=== PATIENT | female | born 1945 | race Caucasian/White ===

== ENCOUNTER → 2018-11-15 | Outpatient (CLI) | payer MEDICARE, OTHER ==
[~2018-11-15] MED LIST: ACET325 PO; AMLO5; AMLO5 PO; BUPR150ER; BUPR150T2 PO; BUSP15 PO; CALGLU500; CIPR500 PO; CONEST.625 PO; CYCL10; CYCL10 PO; DIPATR PO; ESTR2; ESTR2 PO; ESTRTP VAG; FEXO180; FURO20; FURO20 PO; FURO40; FURO40 PO; HYDACE5325; HYDMOR2 PO; LASIX; LISI20 PO; LISI5; LORA.5 PO; LORA10ER; METR500 PO; MULVITMINF; NAPR550 PO; Norco 5-325 Ta1 EACH PO; OMEP20ER PO; ONDA4 PO; ONDA4ODT MM; Omeprazole20 M1 PO; PANT40; POTA8; POTCHL20ER PO; PROACE100 PO; PROM25 PO; PSEU120ER; Prilosec20 MG PO; Questran4 GM PO; RANI150 PO; SACC250C PO; SIMV10 PO; SIMV40; SIMV40 PO; SIMV5 PO; SUCR1 PO; SUCR1SU PO; SUDAFED; Simvastatin20 MG PO; TIZANIDINE HCL2 MG PO; TRAM50; TRAM50 PO; TRAZ100 PO; TRAZ50 PO; TROSPIUM CHLORI60 MG PO; VENL37.5ER PO; Vancocin HCL1000 M1 PO; Vancocin HCl250 MG PO; Zofran Odt4 MG SL; Zofran Odt8 MG SL; Zofran4 MG PO; Zofran8 MG PO; [UNRECOGNIZED DRUG - OTHER]
[2018-11-15 16:45] LABS: BASOPHILS ABSOLUTE AUTO 0.05 K/mm3 (0.00-0.23); BASOPHILS PERCENT AUTO 1 % (0-2); EOSINOPHILS ABSOLUTE AUTO 0.22 K/mm3 (0.00-0.68); EOSINOPHILS PERCENT AUTO 4 % (0-6); Hematocrit 45.3 % (33.0-51.0); Hemoglobin 14.9 g/dL (11.5-16.0); IMMATURE GRAN ABSOLUTE AUTO 0.01 K/mm3 (0.00-0.10); IMMATURE GRAN PERCENT AUTO 0 % (0-1); LYMPHOCYTES PERCENT AUTO 43 % (21-46); MONOCYTES ABSOLUTE AUTO 0.54 K/mm3 (0.16-1.47); MONOCYTES PERCENT AUTO 10 % (4-13); Mean Corpuscular HGB 32.6 pg (26.0-34.0); Mean Corpuscular HGB Conc 32.9 g/dL (31.5-36.5); Mean Corpuscular Volume 99 fL (80-100); Mean Platelet Volume 10.1 fL (9.1-12.4); NEUTROPHILS ABSOLUTE AUTO 2.43 K/mm3 (1.96-9.15); NEUTROPHILS PERCENT AUTO 43 % (41-73); Platelet Count 193 K/mm3 (150-400); RDW Coefficient Variation 12.6 % (11.7-14.2); RDW Standard Deviation 46.2 fL (35.1-46.3); Red Blood Cell Count 4.57 M/mm3 (3.80-5.20); White Blood Cell Count 5.65 K/mm3 (4.00-11.30)
[2018-11-15 17:07] LABS: Bilirubin, Total 0.6 mg/dL (0.1-1.0); Bun/Creatinine Ratio 15.6 (12.0-20.0); Calcium, Blood 9.4 mg/dL (8.5-10.1); Creatinine, Blood 1.28 mg/dL (0.40-1.00); Globulin, Blood 4.1 g/dL (2.2-4.0); Total Protein, Blood 8.1 g/dL (6.4-8.2)
== END | disposition home or self-care (01) ==
LOC: LAB SHORT 16:15 → LAB 16:15
PROVIDERS: Nurse Practitioner Family
DX: I10 Essential (primary) hypertension (principal); R53.83 Other fatigue
CPT/HCPCS: 80053; 83880; 85025

== ENCOUNTER → 2019-06-29 | Outpatient (CLI) | payer MEDICARE, OTHER ==
[2019-06-29 15:40] LABS: Microalbumin, Urine Quant. <5.000 mg/L (0.000-20.000); Protein, Urine Quantitative <5.0 mg/dL (0.0-11.9)
== END | disposition home or self-care (01) ==
LOC: OLS 06:00 → LAB SHORT 06:00 → LAB FUT 06-27 15:10
PROVIDERS: Internal Medicine Nephrology
DX: N18.2 Chronic kidney disease, stage 2 (mild) (principal); D63.1 Anemia in chronic kidney disease; N25.81 Secondary hyperparathyroidism of renal origin; E55.9 Vitamin D deficiency, unspecified; E78.00 Pure hypercholesterolemia, unspecified; R76.9 Abnormal immunological finding in serum, unspecified; R94.5 Abnormal results of liver function studies; R94.6 Abnormal results of thyroid function studies
CPT/HCPCS: 81050; 82043; 82570; 84156

== ENCOUNTER → 2020-01-12 | Outpatient (CLI) | payer MEDICARE, OTHER ==
[2020-01-16 08:10] LABS: METANEPHRINE, UR 133 ug/L (Undefined)
== END | disposition home or self-care (01) ==
LOC: LAB SHORT 12:56 → LAB 12:56 → LAB FUT 01-08 14:45
PROVIDERS: Internal Medicine Nephrology
DX: N18.2 Chronic kidney disease, stage 2 (mild) (principal); D63.1 Anemia in chronic kidney disease
CPT/HCPCS: 81050; 83835

== ENCOUNTER → 2020-10-22 | Outpatient (CLI) | payer MEDICARE, OTHER ==
[2020-10-22 16:41] LABS: Free Thyroxine 1.04 ng/dL (0.70-1.60); Thyroid Stimulating Hormone 2.94 uIU/mL (0.360-4.800)
== END | disposition home or self-care (01) ==
LOC: LAB 10:20 → LAB SHORT 10:20
PROVIDERS: Hospitalist
DX: E03.9 Hypothyroidism, unspecified (principal)
CPT/HCPCS: 84439; 84443

== ENCOUNTER → 2021-10-07 | Outpatient (CLI) | payer MEDICARE, OTHER | END | disposition home or self-care (01) | LOC: LAB SHORT 10:30 → LAB 10:30 | DX: N30.01 Acute cystitis with hematuria (principal) | CPT/HCPCS: 87077; 87086; 87186 ==

== ENCOUNTER → 2022-04-29 | Outpatient (CLI) | payer MEDICARE, OTHER ==
[2022-04-29 16:12] LABS: Magnesium, Blood 1.6 mg/dL (1.6-2.4)
[2022-04-29 16:17] LABS: Bun/Creatinine Ratio 15.6 (12.0-20.0); Calcium, Blood 9.2 mg/dL (8.5-10.1); Creatinine, Blood 0.83 mg/dL (0.40-1.00); Potassium, Blood 3.7 mmol/L (3.5-5.5)
== END | disposition home or self-care (01) ==
LOC: LAB SHORT 11:42 → LAB 11:42
PROVIDERS: Hospitalist
DX: M79.10 Myalgia, unspecified site (principal); E55.9 Vitamin D deficiency, unspecified
CPT/HCPCS: 80048; 82306; 83735

== ENCOUNTER → 2023-03-11 | Outpatient (CLI) | payer MEDICARE, OTHER ==
[2023-03-11 16:08] LABS: BASOPHILS ABSOLUTE AUTO 0.08 K/mm3 (0.00-0.23); BASOPHILS PERCENT AUTO 2 % (0-2); EOSINOPHILS ABSOLUTE AUTO 0.48 K/mm3 (0.00-0.68); EOSINOPHILS PERCENT AUTO 10 % (0-6); Hemoglobin 11.8 g/dL (11.5-16.0); IMMATURE GRAN ABSOLUTE AUTO 0.01 K/mm3 (0.00-0.10); IMMATURE GRAN PERCENT AUTO 0 % (0-1); LYMPHOCYTES ABSOLUTE AUTO 1.76 K/mm3 (0.84-5.20); LYMPHOCYTES PERCENT AUTO 37 % (21-46); MONOCYTES ABSOLUTE AUTO 0.35 K/mm3 (0.16-1.47); MONOCYTES PERCENT AUTO 7 % (4-13); Mean Corpuscular HGB 31.9 pg (26.0-34.0); Mean Corpuscular HGB Conc 32.8 g/dL (31.5-36.5); Mean Corpuscular Volume 97 fL (80-100); Mean Platelet Volume 11.9 fL (9.1-12.4); NEUTROPHILS ABSOLUTE AUTO 2.07 K/mm3 (1.96-9.15); NEUTROPHILS PERCENT AUTO 44 % (41-73); Platelet Count 88 K/mm3 (150-400); RDW Coefficient Variation 14.3 % (11.7-14.2); RDW Standard Deviation 50.9 fL (35.1-46.3); White Blood Cell Count 4.75 K/mm3 (4.00-11.30)
== END | disposition home or self-care (01) ==
LOC: LAB 12:10 → LAB SHORT 12:10
PROVIDERS: Hospitalist
DX: D69.6 Thrombocytopenia, unspecified (principal)
CPT/HCPCS: 85025

== ENCOUNTER → 2023-09-14 | Outpatient (CLI) | payer MEDICARE, OTHER ==
[2023-09-14 18:58] LABS: BASOPHILS ABSOLUTE AUTO 0.04 K/mm3 (0.00-0.23); BASOPHILS PERCENT AUTO 1 % (0-2); EOSINOPHILS ABSOLUTE AUTO 0.25 K/mm3 (0.00-0.68); EOSINOPHILS PERCENT AUTO 6 % (0-6); Hematocrit 33.5 % (33.0-51.0); IMMATURE GRAN PERCENT AUTO 0 % (0-1); LYMPHOCYTES ABSOLUTE AUTO 1.44 K/mm3 (0.84-5.20); LYMPHOCYTES PERCENT AUTO 37 % (21-46); MONOCYTES ABSOLUTE AUTO 0.41 K/mm3 (0.16-1.47); MONOCYTES PERCENT AUTO 11 % (4-13); Mean Corpuscular HGB 31.7 pg (26.0-34.0); Mean Corpuscular HGB Conc 32.8 g/dL (31.5-36.5); Mean Corpuscular Volume 97 fL (80-100); Mean Platelet Volume 11.6 fL (9.1-12.4); NEUTROPHILS ABSOLUTE AUTO 1.75 K/mm3 (1.96-9.15); NEUTROPHILS PERCENT AUTO 45 % (41-73); Platelet Count 96 K/mm3 (150-400); RDW Coefficient Variation 15.9 % (11.7-14.2); RDW Standard Deviation 56.6 fL (35.1-46.3); Red Blood Cell Count 3.47 M/mm3 (3.80-5.20); White Blood Cell Count 3.89 K/mm3 (4.00-11.30)
[2023-09-14 20:32] LABS: Albumin, Blood 2.8 g/dL (3.4-5.0); Albumin/Globulin Ratio 0.8 (0.8-1.8); Bilirubin, Total 0.7 mg/dL (0.1-1.0); Bun/Creatinine Ratio 22.2 (12.0-20.0); Calcium, Blood 9.7 mg/dL (8.5-10.1); Creatinine, Blood 1.08 mg/dL (0.40-1.00); Free Thyroxine 1.1 ng/dL (0.70-1.60); Globulin, Blood 3.5 g/dL (2.2-4.0); Potassium, Blood 4.9 mmol/L (3.5-5.5); Thyroid Stimulating Hormone 3.52 uIU/mL (0.360-4.800); Total Protein, Blood 6.3 g/dL (6.4-8.2)
== END | disposition home or self-care (01) ==
LOC: LAB SHORT 17:56 → LAB 17:56
PROVIDERS: Hospitalist
DX: I10 Essential (primary) hypertension (principal); E03.9 Hypothyroidism, unspecified; D69.6 Thrombocytopenia, unspecified
CPT/HCPCS: 80053; 84439; 84443; 85025

== ENCOUNTER → 2023-11-16 | Outpatient (CLI) | payer MEDICARE, OTHER ==
[~2023-11-16] MED LIST changes: +ALBU90OI; +ALEN70 PO; +BENZ100A; +CATAPRES0.1 MG PO; +GABA300; +HYDR10; +HYDR10 PO; +K-Dur10 MEQ; +LEVSOD25 PO; +LOSA50; +SERT50 PO; +SPIR25 PO; +TIZA4 PO; +WIXELA 250-501 EAC1 INH
[2023-11-16 15:00] LABS: BASOPHILS ABSOLUTE AUTO 0.03 K/mm3 (0.00-0.23); BASOPHILS PERCENT AUTO 1 % (0-2); EOSINOPHILS ABSOLUTE AUTO 0.04 K/mm3 (0.00-0.68); EOSINOPHILS PERCENT AUTO 1 % (0-6); Hematocrit 37.8 % (33.0-51.0); Hemoglobin 12.4 g/dL (11.5-16.0); IMMATURE GRAN ABSOLUTE AUTO 0.02 K/mm3 (0.00-0.10); IMMATURE GRAN PERCENT AUTO 0 % (0-1); LYMPHOCYTES ABSOLUTE AUTO 1.41 K/mm3 (0.84-5.20); LYMPHOCYTES PERCENT AUTO 31 % (21-46); MONOCYTES ABSOLUTE AUTO 0.43 K/mm3 (0.16-1.47); MONOCYTES PERCENT AUTO 10 % (4-13); Mean Corpuscular HGB 31.7 pg (26.0-34.0); Mean Corpuscular HGB Conc 32.8 g/dL (31.5-36.5); Mean Corpuscular Volume 97 fL (80-100); Mean Platelet Volume 10.5 fL (9.1-12.4); NEUTROPHILS PERCENT AUTO 57 % (41-73); Platelet Count 95 K/mm3 (150-400); RDW Standard Deviation 56.6 fL (35.1-46.3); Red Blood Cell Count 3.91 M/mm3 (3.80-5.20); White Blood Cell Count 4.53 K/mm3 (4.00-11.30)
[2023-11-16 15:27] LABS: Albumin, Blood 3.2 g/dL (3.4-5.0); Albumin/Globulin Ratio 0.8 (0.8-1.8); Bilirubin, Total 1.3 mg/dL (0.1-1.0); Bun/Creatinine Ratio 14.1 (12.0-20.0); Calcium, Blood 9.4 mg/dL (8.5-10.1); Potassium, Blood 3.8 mmol/L (3.5-5.5); Total Protein, Blood 7.2 g/dL (6.4-8.2)
== END | disposition home or self-care (01) ==
LOC: LAB SHORT 14:48 → LAB 14:48
PROVIDERS: Nurse Practitioner Family
DX: R19.7 Diarrhea, unspecified (principal)
CPT/HCPCS: 80053; 83880; 85025

== ENCOUNTER 2023-11-27 16:19 | Inpatient (IN) | payer MEDICARE, OTHER ==
[~2023-11-27] VITALS: Ht 170.2 cm; Wt 90.7 kg
[~2023-11-27 16:19] MED LIST changes: -ALBU90OI; -ALEN70 PO; -BENZ100A; -CATAPRES0.1 MG PO; -GABA300; -HYDR10; -HYDR10 PO; -K-Dur10 MEQ; -LEVSOD25 PO; -LOSA50; -SERT50 PO; -SPIR25 PO; -TIZA4 PO; -WIXELA 250-501 EAC1 INH
[2023-11-27 18:02] LABS: Albumin, Blood 2.6 g/dL (3.4-5.0); Albumin/Globulin Ratio 0.7 (0.8-1.8); Bilirubin, Total 2.1 mg/dL (0.1-1.0); Bun/Creatinine Ratio 26.9 (12.0-20.0); Calcium, Blood 9.5 mg/dL (8.5-10.1); Creatinine, Blood 0.93 mg/dL (0.40-1.00); Globulin, Blood 3.6 g/dL (2.2-4.0); Hematocrit 36.8 % (33.0-51.0); Hemoglobin 12.1 g/dL (11.5-16.0); Mean Corpuscular HGB 31.4 pg (26.0-34.0); Mean Corpuscular HGB Conc 32.9 g/dL (31.5-36.5); Mean Corpuscular Volume 96 fL (80-100); Mean Platelet Volume 11.6 fL (9.1-12.4); Platelet Count 82 K/mm3 (150-400); Potassium, Blood 4.2 mmol/L (3.5-5.5); RDW Coefficient Variation 15.2 % (11.7-14.2); RDW Standard Deviation 53.5 fL (35.1-46.3); Red Blood Cell Count 3.85 M/mm3 (3.80-5.20); Total Protein, Blood 6.2 g/dL (6.4-8.2); White Blood Cell Count 17.62 K/mm3 (4.00-11.30)
[2023-11-27] MEDS ORDERED: Droperidol 5 mg/2 ml Vial IV ONE (18:30)
[2023-11-27] MEDS ORDERED: Ampicillin Sod/Sulbactam Sod 3 GM in NS 100 ML IV ONE (18:30)
[2023-11-27] MEDS ORDERED: NS 1,000 ML IV SCH ×2 (18:30→21:35)
[2023-11-27 18:39] LABS: BAND PERCENT MAN 2 % (0-8); BASOPHILS PERCENT MAN 0 % (0-2); EOSINOPHILS PERCENT MAN 0 % (0-6); LYMPHOCYTES ABSOLUTE MAN 0.88 K/mm3 (0.84-5.20); LYMPHOCYTES PERCENT MAN 5 % (21-46); MONOCYTES ABSOLUTE MAN 1.05 K/mm3 (0.16-1.47); MONOCYTES PERCENT MAN 6 % (4-13); NEUTROPHILS ABSOLUTE MAN 15.68 K/mm3 (1.96-9.15); SEG NEUTROPHILS PERCENT MAN 87 % (41-73); TOTAL CELLS COUNTED 100
[2023-11-27 20:43] LABS: Source, Urine Clean Catch
[2023-11-27 20:47] LABS: Bilirubin, Urine Neg (Neg); Blood, Urine 5+ (Neg); Glucose Qualitative, Urine Neg (Neg); Ketones, Urine Neg (Neg); Leukocyte Esterase, Urine 1+ (Neg); Nitrite, Urine Neg (Neg); Protein, Urine 2+ (Neg); Specific Gravity, Urine 1.015 (1.003-1.022); Urobilinogen, Urine NORM (Normal)
[2023-11-27 21:04] LABS: Appearance, Urine Hazy (Clear); Color, Urine Yellow (P-Yellow)
[2023-11-27 21:05] LABS: Amorphous Mod (0-Heavy); Bacteria Many /hpf; Red Blood Cells, Urine 0-2 /hpf (0-2); Squamous Epithelial Cells Not Seen /hpf (Few)
[2023-11-27] MEDS ORDERED: Acetaminophen 325 MG TABLET PO PRN (21:30)
[2023-11-27] MEDS ORDERED: Ondansetron HCl 2 MG / ML 2ML Vial IV PRN (21:35)
[2023-11-28] MEDS ORDERED: CeFAZolin Sodium 2,000 MG in NS 100 ML IV SCH
[2023-11-28] MEDS ORDERED: TraMADol HCl 50 MG Tab PO ONE (03:10)
[2023-11-28 05:49] LABS: BASOPHILS ABSOLUTE AUTO 0.02 K/mm3 (0.00-0.23); BASOPHILS PERCENT AUTO 0 % (0-2); EOSINOPHILS PERCENT AUTO 0 % (0-6); Hematocrit 36.6 % (33.0-51.0); IMMATURE GRAN ABSOLUTE AUTO 0.14 K/mm3 (0.00-0.10); IMMATURE GRAN PERCENT AUTO 1 % (0-1); LYMPHOCYTES ABSOLUTE AUTO 1.24 K/mm3 (0.84-5.20); LYMPHOCYTES PERCENT AUTO 8 % (21-46); MONOCYTES ABSOLUTE AUTO 1.06 K/mm3 (0.16-1.47); MONOCYTES PERCENT AUTO 7 % (4-13); Mean Corpuscular HGB 31.9 pg (26.0-34.0); Mean Corpuscular HGB Conc 32.8 g/dL (31.5-36.5); Mean Corpuscular Volume 97 fL (80-100); Mean Platelet Volume 11.8 fL (9.1-12.4); NEUTROPHILS ABSOLUTE AUTO 13.24 K/mm3 (1.96-9.15); NEUTROPHILS PERCENT AUTO 84 % (41-73); Platelet Count 74 K/mm3 (150-400); RDW Coefficient Variation 15.3 % (11.7-14.2); Red Blood Cell Count 3.76 M/mm3 (3.80-5.20)
[2023-11-28] MEDS ORDERED: Pantoprazole Sodium 40 MG Injection IV SCH (06:00)
[2023-11-28 06:21] LABS: Bun/Creatinine Ratio 26.8 (12.0-20.0); Calcium, Blood 8.7 mg/dL (8.5-10.1); Creatinine, Blood 0.82 mg/dL (0.40-1.00); Potassium, Blood 4.3 mmol/L (3.5-5.5)
[2023-11-28] MEDS ORDERED: Enoxaparin 40 MG/0.4 ML SYR SC SCH (09:00)
[2023-11-28] MEDS ORDERED: Lactobacil 2-S.Thermo-Bifido 1 1 Cap PO SCH (09:00)
[2023-11-28] MEDS ORDERED: HydrALAZINE HCl 20 MG / ML 1ML Vial IV PRN (12:55)
[2023-11-28] MEDS ORDERED: TRAM50 PO (12:57)
[2023-11-28] MEDS ORDERED: LOSA50 PO (12:59)
[2023-11-28] MEDS ORDERED: HYDR10 (12:59)
[2023-11-28] MEDS ORDERED: CATAPRES0.1 MG PO (12:59)
[2023-11-28] MEDS ORDERED: GABA300 (12:59)
[2023-11-28] MEDS ORDERED: SPIR25 PO (12:59)
[2023-11-28] MEDS ORDERED: LEVSOD25 PO (13:00)
[2023-11-28] MEDS ORDERED: ALEN70 PO (13:00)
[2023-11-28] MEDS ORDERED: ALBU90OI (13:00)
[2023-11-28] MEDS ORDERED: BENZ100A (13:00)
[2023-11-28] MEDS ORDERED: TIZA4 PO (13:00)
[2023-11-28] MEDS ORDERED: K-Dur10 MEQ (13:01)
[2023-11-28] MEDS ORDERED: Metoclopramide HCl 5MG / ML 2ML Vial IV PRN (13:20)
[2023-11-28 14:38] VITALS: BP 175/67
[2023-11-28] MEDS ORDERED: SERT50 PO (16:06)
[2023-11-28] MEDS ORDERED: WIXELA 250-501 EAC1 INH (16:07)
[2023-11-28] MEDS ORDERED: HYDR10 PO (16:08)
[2023-11-28] MEDS ORDERED: Mometasone/Formoterol MDI 200/5 mcg 13 GM INH SCH (17:00)
[2023-11-28] MEDS ORDERED: Metoclopramide HCl 5MG / ML 2ML Vial IV ONE (20:15)
[2023-11-28] MEDS ORDERED: TraMADol HCl 50 MG Tab PO PRN (20:15)
[2023-11-28] MEDS ORDERED: Lisinopril 20 MG Tab PO SCH (21:00)
[2023-11-28] MEDS ORDERED: CloNIDine 0.1 MG Tab PO SCH (21:00)
[2023-11-28] MEDS ORDERED: Losartan Potassium 25 MG Tab PO SCH (21:00)
[2023-11-29] MEDS ORDERED: Prochlorperazine Edisylate 10 mg Vial IV PRN (03:30)
[2023-11-29 04:54] LABS: BASOPHILS ABSOLUTE AUTO 0.02 K/mm3 (0.00-0.23); BASOPHILS PERCENT AUTO 0 % (0-2); EOSINOPHILS ABSOLUTE AUTO 0.01 K/mm3 (0.00-0.68); EOSINOPHILS PERCENT AUTO 0 % (0-6); Hematocrit 38.6 % (33.0-51.0); Hemoglobin 11.8 g/dL (11.5-16.0); IMMATURE GRAN ABSOLUTE AUTO 0.08 K/mm3 (0.00-0.10); IMMATURE GRAN PERCENT AUTO 1 % (0-1); LYMPHOCYTES ABSOLUTE AUTO 1.71 K/mm3 (0.84-5.20); LYMPHOCYTES PERCENT AUTO 13 % (21-46); MONOCYTES ABSOLUTE AUTO 0.87 K/mm3 (0.16-1.47); MONOCYTES PERCENT AUTO 7 % (4-13); Mean Corpuscular HGB 31.1 pg (26.0-34.0); Mean Corpuscular HGB Conc 30.6 g/dL (31.5-36.5); Mean Platelet Volume 11.8 fL (9.1-12.4); NEUTROPHILS ABSOLUTE AUTO 10.48 K/mm3 (1.96-9.15); NEUTROPHILS PERCENT AUTO 80 % (41-73); Platelet Count 77 K/mm3 (150-400); RDW Coefficient Variation 15.7 % (11.7-14.2); RDW Standard Deviation 58.5 fL (35.1-46.3); White Blood Cell Count 13.17 K/mm3 (4.00-11.30)
[2023-11-29 05:08] LABS: Mean Corpuscular Volume 102 fL (80-100)
[2023-11-29 05:14] LABS: Albumin, Blood 2.2 g/dL (3.4-5.0); Albumin/Globulin Ratio 0.6 (0.8-1.8); Bilirubin, Total 0.9 mg/dL (0.1-1.0); Bun/Creatinine Ratio 27.5 (12.0-20.0); Calcium, Blood 8.3 mg/dL (8.5-10.1); Creatinine, Blood 0.8 mg/dL (0.40-1.00); Globulin, Blood 3.5 g/dL (2.2-4.0); Potassium, Blood 4.1 mmol/L (3.5-5.5); Total Protein, Blood 5.7 g/dL (6.4-8.2)
[2023-11-29 05:32] VITALS: BP 134/68
--- NOTE | 2023-11-29 05:53 | NUR ---
SHIFT SUMMARY: PATIENT HAS PERSISTANT NAUSEA. TROUSSEAU CONSULTANT MD WAS NOTIFIED AT START OF SHIFT AND ORDER FOR A NOW DOSE OF REGLAN WAS OBTAINED AND MED WAS GIVEN. THEN DR HOUGH WAS NOTIFIED NAUSEA PERSISTS AND COMPAZINE WAS ORDERED AND GIVEN. PATIENT ALSO REPORTED CHRONIC BACK PAIN AND REQUESTED HER HOME MED OF TRAMADOL FOR PAIN, ORDER WAS OBTAINE AND MED WAS GIVEN. NO STOOLS THIS SHIFT PERWICK IS IN PLACE AND WAS CHANGED THIS AM.
[2023-11-29] MEDS ORDERED: Levothyroxine Sodium 0.025 MG Tab PO SCH (06:00)
[2023-11-29 07:41] VITALS: BP 162/66
[2023-11-29] MEDS ORDERED: NS 250 ML IV PRN (09:25)
[2023-11-29 14:18] VITALS: BP 159/66
--- NOTE | 2023-11-29 17:54 | NUR ---
SUMMARY- PT LETHARGIC AND TIRED THIS SHIFT. SLEPT MOST OF THE SHIFT AND HAD FREQUENT COMPLAINTS OF NAUSEA AND BACK PAIN. PT MEDICATED WITH TRAMADOL FOR PAIN AND COMPAZINE AND ZOFRAN FOR NAUSEA, WHICH PT SLEPT WELL AFTER ALL MED ADMINISTRATIONS. AAOX3. PT DISORIENTED TO SITUATION. X1 ASSIST TO BSC/BATHROOM. PT REFUSED TO GET OOB FOR DINNER.
[2023-11-29 19:40] VITALS: BP 150/63
[2023-11-30 02:47] VITALS: BP 163/62
[2023-11-30 04:42] LABS: BASOPHILS ABSOLUTE AUTO 0.03 K/mm3 (0.00-0.23); BASOPHILS PERCENT AUTO 0 % (0-2); EOSINOPHILS ABSOLUTE AUTO 0.15 K/mm3 (0.00-0.68); EOSINOPHILS PERCENT AUTO 2 % (0-6); Hematocrit 35.6 % (33.0-51.0); Hemoglobin 11.2 g/dL (11.5-16.0); IMMATURE GRAN ABSOLUTE AUTO 0.03 K/mm3 (0.00-0.10); IMMATURE GRAN PERCENT AUTO 0 % (0-1); LYMPHOCYTES ABSOLUTE AUTO 1.66 K/mm3 (0.84-5.20); LYMPHOCYTES PERCENT AUTO 23 % (21-46); MONOCYTES ABSOLUTE AUTO 0.49 K/mm3 (0.16-1.47); MONOCYTES PERCENT AUTO 7 % (4-13); Mean Corpuscular HGB 31.5 pg (26.0-34.0); Mean Corpuscular HGB Conc 31.5 g/dL (31.5-36.5); Mean Corpuscular Volume 100 fL (80-100); Mean Platelet Volume 11.8 fL (9.1-12.4); NEUTROPHILS ABSOLUTE AUTO 4.97 K/mm3 (1.96-9.15); NEUTROPHILS PERCENT AUTO 68 % (41-73); Platelet Count 82 K/mm3 (150-400); RDW Coefficient Variation 15.7 % (11.7-14.2); Red Blood Cell Count 3.56 M/mm3 (3.80-5.20); White Blood Cell Count 7.33 K/mm3 (4.00-11.30)
[2023-11-30 06:10] LABS: Albumin, Blood 2.1 g/dL (3.4-5.0); Albumin/Globulin Ratio 0.6 (0.8-1.8); Bilirubin, Direct 0.2 mg/dL (0.0-0.3); Bilirubin, Indirect 0.3 mg/dL (0.1-0.7); Bilirubin, Total 0.5 mg/dL (0.1-1.0); Calcium, Blood 8.4 mg/dL (8.5-10.1); Creatinine, Blood 0.87 mg/dL (0.40-1.00); Globulin, Blood 3.6 g/dL (2.2-4.0); Potassium, Blood 3.6 mmol/L (3.5-5.5); Total Protein, Blood 5.7 g/dL (6.4-8.2)
[2023-11-30 07:07] VITALS: BP 168/69
--- NOTE | 2023-11-30 07:42 | NUR ---
SHIFT SUMMARY: PATIENT IS A&O TO SELF AND PLACE. NAUSEA IS PERSISTANT, COMPAZINE AND ZOFRAN WERE GIVEN WITH FAIR EFFECT. CHRONIC BACK PAIN WAS MEDICATED WITH GOOD EFFECT WITH TRAMADOL X2. PO INTAKE HAS IMPROVED THIS SHIFT.
[2023-11-30] MEDS ORDERED: Losartan Potassium 50 MG Tab PO SCH (09:00)
[2023-11-30] MEDS ORDERED: TraMADol HCl 50 MG Tab PO PRN (11:45)
[2023-11-30 15:44] VITALS: BP 159/70
[2023-11-30] MEDS ORDERED: Acetaminophen 325 MG TABLET PO SCH (16:00)
[2023-11-30 17:45] LABS: HEPATITIS A ANTIBODY, IGM Negative (Negative); HEPATITIS B CORE ANTIBODY, IGM Negative (Negative); HEPATITIS B SURFACE ANTIGEN Negative (Negative); HEPATITIS C AB CIA INTERP Negative (Negative); HEPATITIS C ANTIBODY CIA INDEX 0.07 IV
[2023-11-30] MEDS ORDERED: Prochlorperazine Maleate 5 MG Tab PO PRN (17:50)
[2023-11-30] MEDS ORDERED: Cephalexin Monohydrate 500 MG Cap PO SCH (18:00)
--- NOTE | 2023-11-30 18:25 | NUR ---
1613- PHONE VERBAL FROM DR. SILVA FOR NO IV. IS CHANGING PT'S IV MEDS TO PO.
--- NOTE | 2023-11-30 18:26 | NUR ---
SUMMARY- AAOX3. LETHARGIC AND SLEEPING MOST OF THE SHIFT. BACK PAIN WELL CONTROLLED WITH TRAMADOL. NAUSEA WELL CONTROLLED WITH COMPAZINE. PT TO CHAIR FOR ALL MEALS EXCEPT BREAKFAST. X1 ASSIST W/WALKER AND GAIT BELT TO BSC.
[2023-11-30 19:58] VITALS: BP 168/67
[2023-12-01 02:42] VITALS: BP 167/58
[2023-12-01] MEDS ORDERED: Pantoprazole Sodium 40 MG Tab PO SCH (06:00)
--- NOTE | 2023-12-01 06:27 | NUR ---
SHIFT SUMMARY: PATIENT ORIENTED, COOPERATIVE. SLEPT WELL THROUGH NIGHT. COMPLAINTS OF PAIN RESOLVED BY PAIN MEDICATION. EDEMA IN LEFT ARM AND BILATERAL LOWER EXTREMITIES.
[2023-12-01 07:04] VITALS: BP 158/59
[2023-12-01 07:06] LABS: Hematocrit 35.8 % (33.0-51.0); Hemoglobin 11.4 g/dL (11.5-16.0); Mean Corpuscular HGB 31.4 pg (26.0-34.0); Mean Corpuscular HGB Conc 31.8 g/dL (31.5-36.5); Mean Corpuscular Volume 99 fL (80-100); Mean Platelet Volume 11.2 fL (9.1-12.4); Platelet Count 74 K/mm3 (150-400); RDW Coefficient Variation 15.2 % (11.7-14.2); RDW Standard Deviation 55.3 fL (35.1-46.3); Red Blood Cell Count 3.63 M/mm3 (3.80-5.20); White Blood Cell Count 6.34 K/mm3 (4.00-11.30)
[2023-12-01 07:39] LABS: Albumin/Globulin Ratio 0.6 (0.8-1.8); Bilirubin, Total 0.7 mg/dL (0.1-1.0); Creatinine, Blood 0.73 mg/dL (0.40-1.00); Globulin, Blood 3.5 g/dL (2.2-4.0); Potassium, Blood 3.8 mmol/L (3.5-5.5); Total Protein, Blood 5.5 g/dL (6.4-8.2)
[2023-12-01] MEDS ORDERED: Losartan Potassium 50 MG Tab PO SCH ×2 (09:00)
[2023-12-01] MEDS ORDERED: NIFEdipine 60 MG TabCR PO SCH (09:00)
[2023-12-01 15:33] VITALS: BP 149/60
[2023-12-01] MEDS ORDERED: Sertraline HCl 50 MG Tab PO SCH (16:00)
--- NOTE | 2023-12-01 18:38 | NUR ---
SUMMARY- AAOX3. X1 ASSIST TO THE BSC. NO ACUTE EVENTS THIS SHIFT. NO CHANGES W/PT THIS SHIFT. PAIN AND NAUSEA IMPROVED COMPARED TO YESTERDAY.
[2023-12-01 19:31] VITALS: BP 164/56
[2023-12-02 02:56] VITALS: BP 150/55
[2023-12-02 05:17] LABS: Hematocrit 39.3 % (33.0-51.0); Hemoglobin 12.6 g/dL (11.5-16.0); Mean Corpuscular HGB 31.4 pg (26.0-34.0); Mean Corpuscular HGB Conc 32.1 g/dL (31.5-36.5); Mean Corpuscular Volume 98 fL (80-100); Mean Platelet Volume 11.2 fL (9.1-12.4); Platelet Count 108 K/mm3 (150-400); RDW Coefficient Variation 15.4 % (11.7-14.2); RDW Standard Deviation 55.6 fL (35.1-46.3); Red Blood Cell Count 4.01 M/mm3 (3.80-5.20); White Blood Cell Count 9.18 K/mm3 (4.00-11.30)
--- NOTE | 2023-12-02 06:03 | NUR ---
SHIFT SUMMARY: PATIENT FULLY ORIENTED, COOPERATIVE. PREFERRED MEDS WHOLE IN APPLESAUCE. ON PUREWICK DURING THE NIGHT. SLEPT WELL THROUGH NIGHT.
[2023-12-02 06:05] LABS: Alanine Aminotransfer (ALT/SGP 26 U/L (12-78); Albumin, Blood 2.2 g/dL (3.4-5.0); Albumin/Globulin Ratio 0.6 (0.8-1.8); Alk Phos 127 U/L (50-136); Anion Gap 8 mmol/L (3-11); Aspartate Aminotrans (AST/SGOT 98 U/L (12-37); Bilirubin, Direct 0.3 mg/dL (0.0-0.3); Bilirubin, Indirect 0.6 mg/dL (0.1-0.7); Bilirubin, Total 0.9 mg/dL (0.1-1.0); Blood Urea Nitrogen 12 mg/dL (8-24); Bun/Creatinine Ratio 15.2 (12.0-20.0); CO2, Blood 28 mmol/L (21-32); Calcium, Blood 8.5 mg/dL (8.5-10.1); Chloride, Blood 110 mmol/L (98-108); Creatinine, Blood 0.79 mg/dL (0.40-1.00); Globulin, Blood 3.9 g/dL (2.2-4.0); Glomerular Filtration Rate 77 (60-); Glucose, Blood 98 mg/dL (70-99); Phosphorus, Blood 2.1 mg/dL (2.5-4.9); Potassium, Blood 3.8 mmol/L (3.5-5.5); Sodium, Blood 142 mmol/L (136-145); Total Protein, Blood 6.1 g/dL (6.4-8.2)
[2023-12-02 06:56] VITALS: BP 168/63
[2023-12-02] MEDS ORDERED: Docusate Sodium/Senna 1 Tab PO PRN (15:00)
[2023-12-02] MEDS ORDERED: Docusate Sodium/Senna 1 Tab PO ONE (15:00)
[2023-12-02 15:18] VITALS: BP 147/52
[2023-12-02] MEDS ORDERED: ALBU90OI INH (15:29)
[2023-12-02] MEDS ORDERED: NIFE90ER PO (15:30)
[2023-12-02] MEDS ORDERED: CEPH500 PO (15:30)
[2023-12-02] MEDS ORDERED: LACT PO (15:31)
[2023-12-02] MEDS ORDERED: PROC5 PO (15:31)
--- NOTE | 2023-12-02 16:29 | NUR ---
SHIFT SUMMARY NO ACUTE CHANGES TODAY. PT REPORTS CONSTANT NAUSEA, BUT NO EMESIS. COMPAZINE PRN. TRAMADOL FOR PAIN. RLL CELLULITIS IMPROVING + RECEDING FROM OUTLINE. ORAL ABX PER ORDERS. PT REPORTS FEELING BETTER. 1 ASSIST TO BSC. PLAN FOR PT TO DC TO SNF, BUT NEEDS TO HAVE A BM FIRST. BOWEL CARE MEDS STARTED. PT USES CALL LIGHT APPROPRIATELY.
[2023-12-02 16:37] LABS: SARS-Cov-2 (COVID-19) PCR, MMC NEGATIVE (NEGATIVE)
[2023-12-02 19:47] VITALS: BP 151/54
[2023-12-03] MEDS ORDERED: Docusate Sodium 100 MG Cap PO SCH (04:45)
[2023-12-03] MEDS ORDERED: Magnesium Hydroxide Conc 10 ML UDC PO PRN (04:45)
[2023-12-03] MEDS ORDERED: Bisacodyl 10 MG Supp PR PRN (04:45)
[2023-12-03] MEDS ORDERED: Sennosides 8.6 MG Tab PO SCH (04:45)
[2023-12-03 06:38] VITALS: BP 165/58
[2023-12-03 07:04] VITALS: BP 171/62
--- NOTE | 2023-12-03 07:31 | NUR ---
SHIFT SUMMARY: PATIENT FULLY ORIENTED, COOPERATIVE. PREFERS PILLS IN SAUCE. WAITING FOR BOWEL MOVEMENT IN ORDER TO MOVE TO SNF.
[2023-12-03] MEDS ORDERED: Polyethylene Glycol 3350 17 gm PO PRN (08:00)
[2023-12-03] MEDS ORDERED: Polyethylene Glycol 3350 17 gm PO ONE (08:00)
[2023-12-03] MEDS ORDERED: NIFEdipine 90 MG TabCR PO SCH (09:00)
[2023-12-03] MEDS ORDERED: Metoclopramide HCl 5MG / ML 2ML Vial IV PRN (09:25)
[2023-12-03] MEDS ORDERED: Promethazine HCl 25 MG Tab PO PRN (10:35)
--- NOTE | 2023-12-03 14:09 | NUR ---
DISCHARGE SUMMARY PT LEFT FACILITY VIA WHEELCHAIR BY TRANSPORTATION VAN TO RETURN TO [facility]. THIS NURSE WENT OVER DC INSTRUCTION AND NEW MEDICATION WITH PT. WHOM STATED UNDERSTANDING DC PACKET SENT PT. THIS NURSE ATTEMPTED TO CALL AND GIVE REPORT TO NURSE AT [facility] X2 ATTEMPTS. RESEARCH PROGRAM INTER[employer] STATED SHE WHOULD HAVE THE NURSE CALL BACK WHEN AVAILABLE.
[2023-12-04] MEDS ORDERED: Sertraline HCl 50 MG Tab PO SCH (09:00)
== END 2023-12-03 11:56 | DRG 871 ==
LOC: ER 16:19 → ERHOLD 21:29 → MEDS 21:29
PROVIDERS: Emergency Medicine; Family Medicine; Nurse Practitioner Acute Care; ADMIT Internal Medicine
DX: A41.9 Sepsis, unspecified organism (principal); G92.8 Other toxic encephalopathy; N39.0 Urinary tract infection, site not specified; L03.115 Cellulitis of right lower limb; K52.9 Noninfective gastroenteritis and colitis, unspecified; E78.5 Hyperlipidemia, unspecified; M51.36 Other intervertebral disc degeneration, lumbar region; K74.60 Unspecified cirrhosis of liver; I10 Essential (primary) hypertension; F32.A Depression, unspecified; B96.20 Unspecified Escherichia coli [E. coli] as the cause of diseases classified elsewhere; I86.8 Varicose veins of other specified sites; Z88.5 Allergy status to narcotic agent; Z88.8 Allergy status to other drugs, medicaments and biological substances; Z87.11 Personal history of peptic ulcer disease; Z98.890 Other specified postprocedural states; Z86.19 Personal history of other infectious and parasitic diseases; Z91.018 Allergy to other foods; R29.6 Repeated falls; N21.0 Calculus in bladder
CPT/HCPCS: 36415; 51701; 70450; 72070; 74177; 80048; 80053; 80074; 80076; 81001; 82140; 83605; 83690; 84100; 84443; 85025; 85027; 87040; 87077; 87086; 87186; 93005; 93010; 93971; 94640; 94664; 94760; 96361; 96365-59; 96375-59; 97110; 97116; 97162; 97530; 99285-25; A9270; C9113; J0295; J0360; J0690; J0780; J1650; J1790; J2405; J2765; J7030; Q0164; Q9967; U0002

== ENCOUNTER 2023-12-11 11:50 | Inpatient (IN) | payer MEDICARE, OTHER ==
[~2023-12-11] VITALS: Ht 167.6 cm; Wt 89.5 kg
[~2023-12-11 11:50] MED LIST changes: +ALBU90OI; +ALBU90OI INH; +ALEN70 PO; +BENZ100A; +CATAPRES0.1 MG PO; +CEPH500 PO; +GABA300; +HYDR10; +HYDR10 PO; +K-Dur10 MEQ; +LACT PO; +LEVSOD25 PO; +LOSA50 PO; +NIFE90ER PO; +PROC5 PO; +SERT50 PO; +SPIR25 PO; +TIZA4 PO; +WIXELA 250-501 EAC1 INH
[2023-12-11] MEDS ORDERED: MELATONIN5 M1 PO (12:14)
[2023-12-11] MEDS ORDERED: NS 1,000 ML IV SCH (12:15)
[2023-12-11 12:20] LABS: BASOPHILS ABSOLUTE AUTO 0.05 K/mm3 (0.00-0.23); BASOPHILS PERCENT AUTO 0 % (0-2); EOSINOPHILS ABSOLUTE AUTO 0.16 K/mm3 (0.00-0.68); EOSINOPHILS PERCENT AUTO 1 % (0-6); Hematocrit 40.2 % (33.0-51.0); IMMATURE GRAN ABSOLUTE AUTO 0.07 K/mm3 (0.00-0.10); IMMATURE GRAN PERCENT AUTO 1 % (0-1); LYMPHOCYTES PERCENT AUTO 9 % (21-46); MONOCYTES ABSOLUTE AUTO 1.06 K/mm3 (0.16-1.47); MONOCYTES PERCENT AUTO 8 % (4-13); Mean Corpuscular HGB 31.6 pg (26.0-34.0); Mean Corpuscular HGB Conc 32.3 g/dL (31.5-36.5); Mean Corpuscular Volume 98 fL (80-100); Mean Platelet Volume 9.9 fL (9.1-12.4); NEUTROPHILS ABSOLUTE AUTO 11.47 K/mm3 (1.96-9.15); NEUTROPHILS PERCENT AUTO 81 % (41-73); Platelet Count 171 K/mm3 (150-400); RDW Standard Deviation 55.9 fL (35.1-46.3); Red Blood Cell Count 4.12 M/mm3 (3.80-5.20); White Blood Cell Count 14.11 K/mm3 (4.00-11.30)
[2023-12-11 12:32] LABS: Source, Urine Foley catheter
[2023-12-11 12:37] LABS: Appearance, Urine Clear (Clear); Bilirubin, Urine Neg (Neg); Blood, Urine Neg (Neg); Color, Urine Yellow (P-Yellow); Glucose Qualitative, Urine Neg (Neg); Ketones, Urine Neg (Neg); Leukocyte Esterase, Urine Neg (Neg); Nitrite, Urine Neg (Neg); Protein, Urine Neg (Neg); Urobilinogen, Urine 1+ (Normal)
[2023-12-11 12:39] LABS: Albumin, Blood 1.9 g/dL (3.4-5.0); Albumin/Globulin Ratio 0.5 (0.8-1.8); Bun/Creatinine Ratio 34.3 (12.0-20.0); Calcium, Blood 8.5 mg/dL (8.5-10.1); Creatinine, Blood 1.02 mg/dL (0.40-1.00); Globulin, Blood 4.2 g/dL (2.2-4.0); Potassium, Blood 5.1 mmol/L (3.5-5.5); Total Protein, Blood 6.1 g/dL (6.4-8.2)
[2023-12-11] MEDS ORDERED: CefTRIAXone Sodium 1,000 MG in NS 100 ML IV ONE (13:10)
[2023-12-11] MEDS ORDERED: LevoFLOXacin 500MG/D5W 100ML 100 ML IV ONE (13:10)
[2023-12-11] MEDS ORDERED: Vancomycin HCL 2,000 MG in NS 520 ML IV ONE (13:10)
[2023-12-11] MEDS ORDERED: Ondansetron HCl 2 MG / ML 2ML Vial IV PRN (17:10)
[2023-12-11] MEDS ORDERED: D5W-LR 1,000 ML IV SCH (17:10)
[2023-12-11 17:14] VITALS: BP 135/50
[2023-12-11] MEDS ORDERED: Mometasone/Formoterol MDI 200/5 mcg 13 GM INH SCH (17:15)
[2023-12-11] MEDS ORDERED: FentaNYL Citrate 50 MCG/ML 2 ML Injection IV PRN (17:15)
[2023-12-11] MEDS ORDERED: Albuterol 2.5 MG/3 ML VIAL INH PRN (17:15)
[2023-12-11] MEDS ORDERED: TraMADol HCl 50 MG Tab PO PRN (17:15)
[2023-12-11] MEDS ORDERED: Piperacillin/Tazobactam Sod 3.375 GM in NS 100 ML IV SCH (18:00)
[2023-12-11] MEDS ORDERED: NS 250 ML IV PRN (18:35)
--- NOTE | 2023-12-11 19:18 | NUR ---
PT PLEASANT AT ADMIT. A/O X3, NOT MUCH TALKATIVE. C/O NAUSEA, MEDICATED PER EMAR. H/R REG, NO MURMUR NOTED. PER TELE NSR AT 80. NO EDEMA NOTED. PULSE 2/2. LUNGS CLEAR, RESP EASY, UNLABORED ON R.A. BT HYPOACTIVE, LAST BM NOT KNOWN BY PT. VOIDS USING PUREWICK AT THIS TIME. BED IN LOW POSITION, CALL LITE IN REACH, CALLS APPROP,
[2023-12-11 19:30] VITALS: BP 131/50
[2023-12-11] MEDS ORDERED: Lactobacil 2-S.Thermo-Bifido 1 1 Cap PO SCH (21:00)
[2023-12-11] MEDS ORDERED: TraZODone HCl 50 MG Tab PO SCH (21:00)
[2023-12-11] MEDS ORDERED: Famotidine 10 MG/ML 2ML Vial IV SCH (21:00)
--- NOTE | 2023-12-11 22:42 | NUR ---
PATIENT APPEARS TO BE SLEEPING COMFORTABLY. DOES NOT APPEAR TO BE IN ANY DISTRESS.
--- NOTE | 2023-12-12 01:08 | NUR ---
PATIENT RECEIVED PAIN AND NAUSEA MEDICATIONS AROUND 0045. PATIENT NOW APPEARS TO BE SLEEPING COMFORTABLY AND DOES NOT APPEAR TO BE IN DISTRESS.
[2023-12-12] MEDS ORDERED: Melatonin 3 MG Tab PO PRN (02:25)
--- NOTE | 2023-12-12 03:01 | NUR ---
PATIENT APPEARS TO BE SLEEPING AT THIS TIME. DOES NOT APPEAR TO BE IN ANY DISTRESS.
--- NOTE | 2023-12-12 04:07 | NUR ---
PATIENT APPEARS TO BE SLEEPING AT THIS TIME. DOES NOT APPEAR TO BE IN ANY DISCOMFORT OR DISTRESS.
[2023-12-12 04:31] VITALS: BP 134/49
[2023-12-12] MEDS ORDERED: Levothyroxine Sodium 0.025 MG Tab PO SCH (06:00)
--- NOTE | 2023-12-12 06:20 | NUR ---
SHIFT SUMMARY PATIENT IS ALERT AND ORIENTED X4. VERY DROWSY AND UNABLE TO STAY AWAKE THROUGHOUT ADMISSION ASSESSMENT. PATIENT SLEEPS UNTIL 0100. AT THIS TIME, PATIENT REQUESTS THAT SHE IS GIVEN MEDICATIONS FOR PAIN AND NAUSEA. PATIENT REPORTS THAT SHE IS NO LONGER NAUSEATED, BUT STILL PAINFUL AND ANXIOUS SHE IS UNABLE TO SLEEP. PATIENT REQUESTS SLEEP AID, WHICH IS ORDERED BY DOCTOR GIANLUCA. PATIENT IS GIVEN MORE PAIN MEDICATION WHILE WAITING FOR ORDER TO BE VERIFIED, WHICH APPEARS TO BE EFFECTIVE IN RELIEVING PAIN, AND PATIENT FALLS ASLEEP. PATIENT LATER WAKES FOR MORNING VITALS AND PUREWICK IS FOUND TO BE LEAKING. BEDDING, GOWN, AND PUREWICK ARE CHANGED. AT THIS TIME, THE PATIENT'S LEFT ARM IS FOUND TO BE WEEPING CLEAR FLUID. THIS RN WILL REPORT THIS TO ONCOMING RN. IV FLUIDS HELD UNTIL PATIENT IS ASSESSED BY DOCTOR DURING ROUNDS. THE PATIENT SLEEPS THROUGHOUT THE REST OF THE SHIFT. FAMILY TO VISIT THIS AM.
[2023-12-12 07:48] VITALS: BP 147/47
[2023-12-12] MEDS ORDERED: Sertraline HCl 50 MG Tab PO SCH (09:00)
[2023-12-12] MEDS ORDERED: Losartan Potassium 50 MG Tab PO SCH (09:00)
[2023-12-12] MEDS ORDERED: Enoxaparin 40 MG/0.4 ML SYR SC SCH (09:00)
[2023-12-12 09:53] LABS: BASOPHILS ABSOLUTE AUTO 0.04 K/mm3 (0.00-0.23); BASOPHILS PERCENT AUTO 0 % (0-2); EOSINOPHILS ABSOLUTE AUTO 0.15 K/mm3 (0.00-0.68); EOSINOPHILS PERCENT AUTO 2 % (0-6); Hematocrit 40.2 % (33.0-51.0); IMMATURE GRAN ABSOLUTE AUTO 0.03 K/mm3 (0.00-0.10); IMMATURE GRAN PERCENT AUTO 0 % (0-1); LYMPHOCYTES ABSOLUTE AUTO 1.14 K/mm3 (0.84-5.20); LYMPHOCYTES PERCENT AUTO 11 % (21-46); MONOCYTES PERCENT AUTO 8 % (4-13); Mean Corpuscular HGB 31.6 pg (26.0-34.0); Mean Corpuscular HGB Conc 32.3 g/dL (31.5-36.5); Mean Corpuscular Volume 98 fL (80-100); Mean Platelet Volume 10.3 fL (9.1-12.4); NEUTROPHILS ABSOLUTE AUTO 7.93 K/mm3 (1.96-9.15); NEUTROPHILS PERCENT AUTO 79 % (41-73); Platelet Count 152 K/mm3 (150-400); RDW Coefficient Variation 15.9 % (11.7-14.2); RDW Standard Deviation 56.3 fL (35.1-46.3); Red Blood Cell Count 4.11 M/mm3 (3.80-5.20); White Blood Cell Count 10.09 K/mm3 (4.00-11.30)
[2023-12-12 10:14] LABS: Albumin/Globulin Ratio 0.5 (0.8-1.8); Calcium, Blood 8.4 mg/dL (8.5-10.1); Creatinine, Blood 0.93 mg/dL (0.40-1.00); Globulin, Blood 4.2 g/dL (2.2-4.0); Potassium, Blood 4.4 mmol/L (3.5-5.5); Total Protein, Blood 6.2 g/dL (6.4-8.2)
--- NOTE | 2023-12-12 17:53 | NUR ---
PT PLEASANT TODAY. STATES STILL NAUSEOUS THIS MENDY FOR DINNER. MED PER EMAR. NO C/O PAIN TODAY. DID WORK WITH PT/OT TODAY. SHE STATES THAT FELT DIZZY WHEN UP SO LAID BACK DOWN. DID BED EXERCIZES PER PATIENT. DRINKING SOME OF ENSURE AND SOME JUICES MOSTLY FOR MEALS. POWERGLIDE PLACED LEFT UPPER ARM TODAY. ARMS STILL LIGHTLY WEEPY. CONTIUES TO BE PLEASANT AND SOME TALKATIVE. NO NEW CONCERNS NOTED. BED IN LOW POSITION, CALL LITE IN REACH, CALLS APPROP
[2023-12-12 19:12] VITALS: BP 140/52
[2023-12-12] MEDS ORDERED: TraZODone HCl 100 MG Tab PO SCH (21:00)
[2023-12-13 04:01] VITALS: BP 141/52
[2023-12-13 08:09] VITALS: BP 162/58
[2023-12-13] MEDS ORDERED: FLUT1DIS5 INH (13:26)
--- NOTE | 2023-12-13 15:11 | NUR ---
Spiritual care visit conducted. Patient is alert and shares about the events that led to her admission to the hospital. She talks about her solid family and friend support and welcomes prayer. I gladly supply prayer. Patient shows signs of greater peace and begins to struggle to keep her eyes open. I let her rest.
[2023-12-13 15:57] VITALS: BP 161/46
[2023-12-13 16:13] VITALS: BP 158/44
[2023-12-13] MEDS ORDERED: Furosemide 10 MG / ML 2ML Vial IV ONE (16:40)
--- NOTE | 2023-12-13 18:14 | NUR ---
SHIFT SUMMARY: PT A/O X3 WITH AM ASSESSMENT. PT/OT ATTEMPTED TO WORK WITH PT BUT PT BECAME MORE NAUSEOUS, LETHARGIC, AND WEAK THROUGHOUT THE DAY. 3+ SWELLING AND WEEPING NOTED ON R. ARM. SPOKE WITH DR. FLORENTINO ORDERING 1X LASIX TODAY THEN DAILY STARTING TOMORROW. RAC AND RFA IV REMOVED D/T SWELLING/WEEPING. R. LOWER LEG APPEARS TO HAVE NO REDNESS OUTSIDE OF BORDER. NEW MEPILEX APPLIED TO SCAB ON RLE. CALL LIGHT IN REACH. BED IN LOWEST POSITION.
[2023-12-13 19:52] VITALS: BP 157/52
[2023-12-14 04:23] VITALS: BP 163/64
--- NOTE | 2023-12-14 05:18 | NUR ---
manager nc PATIENT IS A&OX4, BUT VERY SLEEPY THROUIGHT OUT THE SHIFT. BP ARE SLIGHTLY ELEVATED, ON ROOM AIR. PATIENT COMPLAINED OF PAIN TO BACK AND NAUSEA, PRN PAIN MEDS AND NAUSEA MEDICATION WERE GIVEN. PATIENT IS VERY SWELLING, HAS 3 PLUS EDEMA TO BILATERAL UPPER AND LOWER EXTREMITIES,ON LAXIS, CELLULITIES TO RIGHT LOWER EXTREMITY PATIENT CALLS APPROPRIATELY, AND IS ON BEDREST.
[2023-12-14 08:13] VITALS: BP 160/60
[2023-12-14] MEDS ORDERED: Furosemide 10 MG / ML 2ML Vial IV SCH (09:00)
[2023-12-14 15:12] VITALS: BP 145/53
--- NOTE | 2023-12-14 18:26 | NUR ---
SHIFT SUMMARY: NO ACUTE CHANGES THIS SHIFT. PT REMAINS LETHARGIC AND WEAK. PT ALSO REMAINS EDEMEDOUS IN R.ARM. DIURETICS GIVEN PER EMAR. ABX INFUSING W/O COMPLICATIONS. PT/OT WORKED WITH PT THIS SHIFT. PUREWICK IN PLACE DRAINING LIGHT YELLOW URINE. PLAN FOR PT TO RETURN TO UV WHEN MEDICALLY STABLE. PALLIATIVE CARE ON BOARD. CALL LIGHT IN REACH. BED IN LOWEST POSITION.
--- NOTE | 2023-12-14 19:08 | NUR ---
RECEIVED BEDSIDE REPORT FROM DAY SHIFT RN. PT RESTING QUIETLY WITH EYES CLOSED. RESP E/U ON RA. AWAKENS TO NAME. WILL PROVIDE CARE T/O SHIFT. CALL LT IN REACH.
[2023-12-14 20:32] VITALS: BP 142/60
[2023-12-14 20:34] VITALS: BP 142/60
--- NOTE | 2023-12-14 21:40 | NUR ---
PT RESTING QUIETLY. CALL LT IN REACH.
--- NOTE | 2023-12-15 00:10 | NUR ---
PT RESTING QUIETLY. IV ABX INFUSING. CALL LT IN REACH.
--- NOTE | 2023-12-15 02:09 | NUR ---
PT RESTING QUIETLY. CALL LT IN REACH.
[2023-12-15 03:37] VITALS: BP 158/59
--- NOTE | 2023-12-15 05:06 | NUR ---
SHIFT SUMMARY: A/O. STATES NEEDS APPROPRIATELY. ON RA. CHELSIE PG DRAWS. MEDICATED X 2 FOR NAUSEA WITH ZOFRAN, NAUSEA RESOLVED. BLE AND BUE ELEVATED ON PILLOWS. TAKES MEDS WHOLE WITH WATER WITHOUT DIFFICULTY. RECEIVING IV ABX. MEDICATED FOR PAIN GIVING 50MG OF TRAMADOL, WITH FAIR PAIN RELIEF. NO ACUTE CHANGES. WILL CONTINUE TO PROVIDE CARE UNTIL SHIFT REPORT TO ONCOMING NURSE. CALL LT IN REACH.
[2023-12-15 05:20] LABS: BASOPHILS ABSOLUTE AUTO 0.02 K/mm3 (0.00-0.23); BASOPHILS PERCENT AUTO 0 % (0-2); EOSINOPHILS ABSOLUTE AUTO 0.03 K/mm3 (0.00-0.68); EOSINOPHILS PERCENT AUTO 1 % (0-6); Hematocrit 39.2 % (33.0-51.0); Hemoglobin 12.6 g/dL (11.5-16.0); IMMATURE GRAN ABSOLUTE AUTO 0.02 K/mm3 (0.00-0.10); IMMATURE GRAN PERCENT AUTO 0 % (0-1); LYMPHOCYTES ABSOLUTE AUTO 0.69 K/mm3 (0.84-5.20); LYMPHOCYTES PERCENT AUTO 12 % (21-46); MONOCYTES ABSOLUTE AUTO 0.42 K/mm3 (0.16-1.47); MONOCYTES PERCENT AUTO 8 % (4-13); Mean Corpuscular HGB 31.5 pg (26.0-34.0); Mean Corpuscular HGB Conc 32.1 g/dL (31.5-36.5); Mean Corpuscular Volume 98 fL (80-100); Mean Platelet Volume 10.9 fL (9.1-12.4); NEUTROPHILS PERCENT AUTO 79 % (41-73); Platelet Count 100 K/mm3 (150-400); RDW Coefficient Variation 15.8 % (11.7-14.2); RDW Standard Deviation 56.8 fL (35.1-46.3); White Blood Cell Count 5.58 K/mm3 (4.00-11.30)
[2023-12-15 06:21] LABS: Albumin, Blood 1.8 g/dL (3.4-5.0); Albumin/Globulin Ratio 0.4 (0.8-1.8); Bilirubin, Total 0.9 mg/dL (0.1-1.0); Bun/Creatinine Ratio 20.6 (12.0-20.0); Calcium, Blood 8.4 mg/dL (8.5-10.1); Creatinine, Blood 0.87 mg/dL (0.40-1.00); Globulin, Blood 4.1 g/dL (2.2-4.0); Potassium, Blood 4.1 mmol/L (3.5-5.5); Total Protein, Blood 5.9 g/dL (6.4-8.2)
[2023-12-15 07:21] VITALS: BP 161/67
[2023-12-15] MEDS ORDERED: NIFEdipine 30 MG TabCR PO SCH (08:00)
[2023-12-15] MEDS ORDERED: Albumin (Human) 25gm/100ml 100 ML IV SCH (09:00)
[2023-12-15] MEDS ORDERED: Protein Supplement 30 ML UD PO SCH (09:00)
[2023-12-15] MEDS ORDERED: TraZODone HCl 50 MG Tab PO PRN (10:35)
--- NOTE | 2023-12-15 15:01 | NUR ---
Spiritual care visit conducted. Patient is lying in bed and alert. She immediately tells me about her nausea so I push the call light. Her RN Ana María responds quickly, checks the EMR and administers the needed medication. Patient tells me about her sons, and step-son and dtr. She shares about her vicente and about how much the love of God strengthens her every day. She is very sleepy and talks slowly but every once in a while she will say something sharp and witty. She tells stories of her life and her late . She is seems to be encouraged by her own stories. I provided therapeutic listening, theological insights and prayer. Patient responded well and showed signs of an elevated mood.
[2023-12-15 15:36] VITALS: BP 164/68
[2023-12-15] MEDS ORDERED: Acetaminophen 325 MG TABLET PO PRN (15:50)
--- NOTE | 2023-12-15 18:38 | NUR ---
SHIFT SUMMARY PATIENT ALERT AND INTERACTIVE BUT SLEEPY. PATIENT INCONTINENT STOOL AND URINE MULTIPLE TIMES TODAY. PATIENT REPEATEDLY C/O FEELING NAUSEATED. PATIENT MEDICATED WITH ZOFRAN. PATIENT ALSO VERBALIZING A HEADACHE. PATIENT MEDICATED WITH TYLENOL WITH SOME RELIEF. PATIENT TURNED FREQUENTLY. PATIENT ABLE TO FEED SELF CLEAR LIQUID DIET.
[2023-12-15 19:13] VITALS: BP 149/56
--- NOTE | 2023-12-16 05:07 | NUR ---
SOCK KNITTER NOTES PATIENT IS A&0X4, VITALS ARE SLIGHTLY ELEVATED, LAST BOP 149/56, PULSE 80, ON ROOM AIR, COMPLAIN OF GENERALIZED PAIN, PRN PAIN MED GIVEN. PATIENT IS NOT ON TELE. PATIENT IS BEDREST, IS ABLE TO MOVE SELF IN BED WITH ASSISTANCE, PATIENT IS A Q2TURN. PATIENT HAS SEVERE EDEMA TO BILATERAL LOWER AND UPPER EXTREMITIES AND SKIN APPEARES RED.
[2023-12-16 05:12] VITALS: BP 147/51
[2023-12-16 05:40] LABS: Albumin, Blood 2.5 g/dL (3.4-5.0); Albumin/Globulin Ratio 0.7 (0.8-1.8); Bilirubin, Total 1.1 mg/dL (0.1-1.0); Bun/Creatinine Ratio 19.8 (12.0-20.0); Calcium, Blood 8.4 mg/dL (8.5-10.1); Creatinine, Blood 0.76 mg/dL (0.40-1.00); Globulin, Blood 3.5 g/dL (2.2-4.0); Potassium, Blood 3.5 mmol/L (3.5-5.5)
[2023-12-16 07:10] VITALS: BP 159/55
[2023-12-16] MEDS ORDERED: Melatonin 5 MG Tablet PO PRN (11:15)
[2023-12-16] MEDS ORDERED: Spironolactone 50 MG Tab PO SCH (12:00)
[2023-12-16] MEDS ORDERED: Potassium Chloride 20 MEQ TabCR PO ONE (12:00)
[2023-12-16 15:38] VITALS: BP 146/47
--- NOTE | 2023-12-16 16:23 | NUR ---
Case Conference: Spoke with pt's son Chris and daughter in law "Rachael." After seeing the patient today, felt concerned the patient is not physically improving. She has been living in an RV alone on a friend's property. At this point, the patient does not appear to be motivated to work with therapy. She states she is motivated, but doesn't appear to be. Her son states he has been attempting to get her to move to [place] for the past 2 years, but the patient has refused. Plan to call son and pt on Wednesday at noon to discuss a plan of care.
[2023-12-16] MEDS ORDERED: Famotidine 20 MG Tab PO SCH (16:30)
--- NOTE | 2023-12-16 17:25 | NUR ---
Received a message from pt's son Ronni. He states he was able to speak to the patient this evening, and he feels he needs to come up here from [place] to come up with a new plan for her. He states he should be here by Wednesday. Attempted to return his call as requested, but it continues to have a busy signal.
--- NOTE | 2023-12-16 17:55 | NUR ---
SHIFT SUMMARY PATIENT ALERT AND INTERACTIVE BUT CONTINUES TO BE SLEEPY. PATIENT IRRITABLE WITH POSITIONING. PATIENT UP TO CHAIR WITH LIFT X1. PATIENT CONTINUES TO C/O NAUSEA BUT TOLERATING CLEAR LIQUIDS. PATIENT ADVANCED TO FULL LIQUIDS. CONTINUES TO BE INCONTINENT URINE. PALLIATIVE CARE SPOKE WITH PATIENT TODAY. DR. FLORENTINO AND PALLIATIVE CARE TO REACH OUT TO FAMILY. PATIENT NOT PARTICIPATING IN THERAPY.
[2023-12-16 19:31] VITALS: BP 136/47
[2023-12-17 04:16] VITALS: BP 161/66
--- NOTE | 2023-12-17 04:27 | NUR ---
AUTOMOTIVE BRAKE ADJUSTER NOTES PATIENT IS A&OX4, VERY DROWSY AND WEAK THROUGH OUT SHIFT. ELEVATED BP 161/66, ON ROOM AIR. NO TELE RUNNING. PATIENT COMPLAINED OF PAIN AND NAUSEA, PRN PAIN AND NAUSEA MADICATION WERE GIVEN WHICH HELPED IMPROVED HER SYMPTOMS. PATIENT IS CURRENTLY RESTING QUIETLY IN BED.
[2023-12-17 07:30] VITALS: BP 151/62
--- NOTE | 2023-12-17 10:25 | NUR ---
10 am Angelica.Verna. came out of room to inform that patient declined comfort care or hospice. M.D. let her know that she then must start moving and work with p.t instead of refusing it. Federico stated she would keep her out of bed. Patient very much wants to be bed only full care. This C.N.A entered room and let her know if she wants to get better were not staying in bed anymore during the day. Patient became irritated but agreed to try to stand with C.N.A. (I was told shes full bedbound LIFT patient) Patient then independantly but reluctantly threw her legs over the side and sat up. I praised her and encouraged to do a quick stand with me to see how she does. She laughed, stood up 100 percent and walked over to the recliner by herself and sat down. I then said, "Alright! GREAT! We gotta keep going throught the day we will get up and walk and not go back to bed. Xi informed of this.
[2023-12-17] MEDS ORDERED: Mag Hydrox/Al Hydrox/Simeth 18 ML,Lidocaine 2% Viscous Soln 9 ML,Atropine/Scopalam/Hyos... PO PRN (10:45)
[2023-12-17] MEDS ORDERED: Calcium Carbonate 500 MG Tab Chew PO SCH (12:30)
[2023-12-17 14:50] VITALS: BP 147/52
--- NOTE | 2023-12-17 19:14 | NUR ---
SHIFT SUMMARY PATIENT ALERT AND INTERACTIVE BUT CONTINUES TO BE SLEEPY. PATIENT AROUSES AND IS ABLE TO FEED SELF BUT EASILY TIRES. PATIENT UP TO CHAIR WITH ONE PERSON ASSIST. PATIENT REQUESTED TO GET UP TO GO TO THE BATHROOM FROM CHAIR. PATIENT WALKED A FEW STEPS THEN STARTED TO FALL TOWARDS THE BED. PATIENT STATING THAT SHE NEEDS TO SIT DOWN AND KEPT LEANING TOWARDS THE BED. PATIENT ASSISTED TO THE BED. PATIENT THEN TRIED TO LAY DOWN. REMINDED PATIENT THAT SHE WANTED TO GET TO THE BR. OBTAINED COMMODE AND ASSISTED PATIENT TO COMMODE WITH MED SPEC HELP. WHILE PROVIDING SKYLER CARE, PATIENT ATTEMPTED TO FALL BACK ON BED. PATIENT NEEDING CLAY COACHING FOR FALL PREVENTION. STOOD PATIENT BACK UP AND FINISHED CLEANING HER. PATIENT PLACED BACK IN CHAIR SO BED COULD BE CLEANED. PATIENT ABLE TO AMBULATE WITH STAND BY ASSIST BACK TO BED ONCE LINENS CHANGED. PATIENT APOLOGIZED FOR BEHAVIOR AND UNDERSTANDS NOW THE RISK FOR STAFF AND PATIENT WHEN DOING THAT. UNABLE TO SEND STOOL SAMPLE BECAUSE IT WAS MIXED WITH URINE. PATIENT CONTINUES TO COMPLAIN OF UPSET STOMACH BUT STATES THAT IT HAS IMPROVED WITH TUMS.
[2023-12-17 19:15] VITALS: BP 142/40
[2023-12-18 03:24] VITALS: BP 155/52
[2023-12-18 07:16] VITALS: BP 181/63
[2023-12-18 09:49] LABS: BASOPHILS ABSOLUTE AUTO 0.02 K/mm3 (0.00-0.23); BASOPHILS PERCENT AUTO 0 % (0-2); EOSINOPHILS ABSOLUTE AUTO 0.02 K/mm3 (0.00-0.68); EOSINOPHILS PERCENT AUTO 0 % (0-6); Hematocrit 35.9 % (33.0-51.0); Hemoglobin 11.6 g/dL (11.5-16.0); IMMATURE GRAN ABSOLUTE AUTO 0.03 K/mm3 (0.00-0.10); IMMATURE GRAN PERCENT AUTO 0 % (0-1); LYMPHOCYTES ABSOLUTE AUTO 1.25 K/mm3 (0.84-5.20); LYMPHOCYTES PERCENT AUTO 17 % (21-46); MONOCYTES ABSOLUTE AUTO 0.67 K/mm3 (0.16-1.47); MONOCYTES PERCENT AUTO 9 % (4-13); Mean Corpuscular HGB 31.6 pg (26.0-34.0); Mean Corpuscular HGB Conc 32.3 g/dL (31.5-36.5); Mean Corpuscular Volume 98 fL (80-100); Mean Platelet Volume 11.5 fL (9.1-12.4); NEUTROPHILS ABSOLUTE AUTO 5.43 K/mm3 (1.96-9.15); NEUTROPHILS PERCENT AUTO 73 % (41-73); Platelet Count 76 K/mm3 (150-400); RDW Coefficient Variation 15.5 % (11.7-14.2); RDW Standard Deviation 55.8 fL (35.1-46.3); Red Blood Cell Count 3.67 M/mm3 (3.80-5.20); White Blood Cell Count 7.42 K/mm3 (4.00-11.30)
[2023-12-18 10:13] LABS: Bun/Creatinine Ratio 28.9 (12.0-20.0); Calcium, Blood 8.6 mg/dL (8.5-10.1); Creatinine, Blood 0.59 mg/dL (0.40-1.00); Potassium, Blood 3.5 mmol/L (3.5-5.5)
[2023-12-18] MEDS ORDERED: Dextrose 5% 500 ML IV ONE (11:00)
[2023-12-18 13:18] LABS: SARS-Cov-2 (COVID-19) PCR, MMC NEGATIVE (NEGATIVE)
[2023-12-18] MEDS ORDERED: Acetaminophen325 M1 PO (15:29)
[2023-12-18] MEDS ORDERED: FAMO20 PO (15:33)
[2023-12-18] MEDS ORDERED: Calcium Carbon500 MG PO (15:33)
[2023-12-18] MEDS ORDERED: LIQUACEL PO (15:35)
[2023-12-18] MEDS ORDERED: SPIR50 PO (15:35)
--- NOTE | 2023-12-18 16:09 | NUR ---
Pt D/C to [facility] rehab at 1525, VSS, denies SOB, denies any pain, ambulates to wheelchair with 2x asssist, on RA. Report give to [facility], safety ensured.
== END 2023-12-18 15:12 | disposition home or self-care (01) | DRG 177 ==
LOC: ER 11:50 → MEDS 15:13
PROVIDERS: Emergency Medicine; ADMIT Internal Medicine
DX: J15.69 Pneumonia due to other Gram-negative bacteria (principal); K85.90 Acute pancreatitis without necrosis or infection, unspecified; J44.0 Chronic obstructive pulmonary disease with (acute) lower respiratory infection; E78.5 Hyperlipidemia, unspecified; Z66 Do not resuscitate; Z51.5 Encounter for palliative care; K29.80 Duodenitis without bleeding; I10 Essential (primary) hypertension; E03.9 Hypothyroidism, unspecified; R19.7 Diarrhea, unspecified; K74.60 Unspecified cirrhosis of liver; Z88.8 Allergy status to other drugs, medicaments and biological substances; Z88.5 Allergy status to narcotic agent; Z79.899 Other long term (current) drug therapy; Z79.2 Long term (current) use of antibiotics; Z79.51 Long term (current) use of inhaled steroids; Z87.19 Personal history of other diseases of the digestive system; Z98.890 Other specified postprocedural states; Z90.49 Acquired absence of other specified parts of digestive tract; Z87.891 Personal history of nicotine dependence; Z90.710 Acquired absence of both cervix and uterus; Z90.722 Acquired absence of ovaries, bilateral
CPT/HCPCS: 36415; 51701; 71045; 74177; 80048; 80053; 81003; 83605; 85025; 87040; 92610; 94640; 94664; 94760; 96361; 96365-59; 96366; 96368; 97110; 97112; 97161; 97165; 97530; 99285-25; A9270; J0696; J1650; J1940; J1956; J2405; J2543; J3010; J3370; J7030; J7040; J7050; J7060; J7121; P9047; P9612; Q9967; U0002